=== PATIENT | female | born 1990 ===

== ENCOUNTER 2016-11-30 01:26 | Emergency (ER) | payer OTHER ==
[2016-11-30 01:45] VITALS: BMI 24.7
[2016-11-30 01:47] VITALS: RESP 16; O2SAT 100
[2016-11-30] MEDS ORDERED: levoFLOXacin 750 MG TAB PO STA (02:40)
--- NOTE | 2016-11-30 02:48 | ED PDOC ---
HPI: CCC, URI, Sore Throat Chief Complaint (Provider): Ear Pain History Per: Patient <Kristin Kinney - Last Filed: 11/30/16 03:39> <Ortiz Pabon - Last Filed: 11/30/16 04:52> Chief Complaint (Nursing): GI Problem Additional Complaint(s): 26F p/w being awakened at 2330 by severe, sharp LEFT ear pain and then NBNB vomiting x3 on the way to the hospital. Patient reports she went to see her PMD 2 days prior for sinus/URI symptoms and was prescribed a Z-pack and Loratidine. She says her symptoms haven't really improved and then this evening became worse. She denies fever, chills, SOB, chest pain/palpitations, sore throat, but she has had decreased hearing in the LEFT ear due to the inflammation and pressure. LMP: 10/31/2016 PMH: None PSH: None Allergies: NKDA Smoke: Occ Alcohol: Denies Drugs: Denies (Kristin Kinney) Supervising Attending Note - Attestation: I have personally seen and examined this patient.: Yes I have fully participated in the care of the patient.: Yes I have reviewed all pertinent clinical information, including history, physical exam and plan: Yes <Ortiz Pabon - Last Filed: 11/30/16 04:52> Past Medical History - Family History Family History: States: No Known Family Hx <MariellematyKristin - Last Filed: 11/30/16 03:39> <Ortiz Pabon - Last Filed: 11/30/16 04:52> Vital Signs: Last Vital Signs Temp 98.7 F 11/30/16 03:52 Pulse 78 11/30/16 03:52 Resp 16 11/30/16 03:52 BP 126/75 11/30/16 03:52 Pulse Ox 100 11/30/16 03:52 - Home Medications Home Medications: Ambulatory Orders Medication Instructions Recorded Levofloxacin [Levaquin] 750 mg PO DAILY #5 tablet 11/30/16 - Allergies Allergies/Adverse Reactions: Allergies Allergy/AdvReac Type Severity Reaction Status Date / Time No Known Allergies Allergy Verified 11/30/16 01:45 Review of Systems ROS Statement: Except As Marked, All Systems Reviewed And Found Negative ENT: Positive for: Ear Pain, Nose Congestion <Kristin Kinney - Last Filed: 11/30/16 03:39> Physical Exam - Reviewed Vital Signs Reviewed: Yes - Physical Exam Appears: Positive for: Non-toxic, No Acute Distress Head Exam: Positive for: ATRAUMATIC Skin: Positive for: Warm, Dry Eye Exam: Positive for: EOMI, PERRL ENT: Positive for: TM Is/Are (dull, RIGHT trace blood, no purulence noted). Negative for: Sinus Pain/Drainage, Pharyngeal Erythema, Tonsillar Exudate, Tonsillar Swelling Neck: Positive for: Normal, Supple Cardiovascular/Chest: Positive for: Regular Rate, Rhythm Respiratory: Positive for: Normal Breath Sounds. Negative for: Rales, Rhonchi, Wheezing Gastrointestinal/Abdominal: Positive for: Bowel Sounds, Soft. Negative for: Tenderness <Kristin Kinney - Last Filed: 11/30/16 03:39> - ECG O2 Sat by Pulse Oximetry: 100 <Kristin Kinney - Last Filed: 11/30/16 03:39> Medical Decision Making <Kristin Kinney - Last Filed: 11/30/16 03:39> <Ortiz Pabon - Last Filed: 11/30/16 04:52> Medical Decision MakinF failed therapy on Z-pack and appears to have AOM with likely sinus involvement. Will ensure PO tolerance and then start appropriate antibiotic coverage. - Zofran PO - Ibuprofen, PO, for pain - Levaquin 750mg, PO, x1 Re-eval 0330 Patient tolerated Zofran, Ibuprofen, Levaquin, and now feels better. (Kristin Kinney) Disposition - Patient ED Disposition Is Patient to be Admitted: No Counseled Patient/Family Regarding: Studies Performed, Diagnosis, Need For Followup, Rx Given - Disposition Disposition: Routine/Home Disposition Time: 03:35 <Kristin Kinney - Last Filed: 11/30/16 03:39> <Ortiz Pabon - Last Filed: 11/30/16 04:52> - Clinical Impression Clinical Impression: Acute otitis media - Disposition Referrals: Maxine Robles MD [Staff Provider] - Condition: GOOD Additional Instructions: Any fevers, chills after 24hrs from discharge patient needs to return. Otherwise , follow up with PMD after completion of antibiotics. Prescriptions: Levofloxacin [Levaquin] 750 mg PO DAILY #5 tablet Instructions: Otitis Media (ED) Forms: [employer] (Urdu)
[2016-11-30 03:53] VITALS: BP 126/75; PULSE 78; TEMP 98.7
== END 2016-11-30 03:53 | disposition home or self-care (01) ==
LOC: H.ER 01:26
DX: H66.92 Otitis media, unspecified, left ear (principal)

== ENCOUNTER 2017-05-01 02:26 | Observation (INO) | payer OTHER ==
[2017-05-01 02:28] VITALS: BMI 24.7
[2017-05-01] MEDS ORDERED: Iohexol 240 (50 ml) PO ONE (04:04)
[2017-05-01] MEDS ORDERED: Sodium Chloride 0.9% 1,000 ML IV STA (04:04)
[2017-05-01 04:31] LABS: BASO # 0.1 K/uL (0.0-0.2); BASO % 0.6 % (0.0-2.0); EOS # 0.1 K/uL (0.0-0.7); EOS % 0.6 % (0.0-4.0); HEMOGLOBIN 12.9 g/dL (12.0-16.0); LYMPH # 3.3 K/uL (1.0-4.3); LYMPH % 20.1 % (20.0-40.0); MEAN CELL VOLUME 91.5 fl (81.0-99.0); MEAN CORPUSCULAR HGB CONC 33.9 g/dL (33.0-37.0); MEAN PLATELET VOLUME 7.6 fl (7.2-11.7); MONO # 1.3 K/uL (0.0-0.8); MONO % 7.8 % (0.0-10.0); NEUT # 11.6 K/uL (1.8-7.0); NEUT % 70.9 % (50.0-75.0); NRBC % 0.1 % (0.0-0.0); RBC 4.14 Mil/uL (3.80-5.20); RED CELL DISTRIBUTION WIDTH 13.6 % (11.5-14.5); WHITE BLOOD COUNT 16.3 K/uL (4.8-10.8)
[2017-05-01] MEDS ORDERED: Iohexol 240 (50 ml) ONE (04:37)
[2017-05-01 04:41] LABS: ALB/GLOB RATIO 1.3 (1.0-2.1); ALBUMIN 4.6 g/dL (3.5-5.0); ALT/SGPT 29 U/L (9-52); AST/SGOT 25 U/L (14-36); BLOOD UREA NITROGEN 10 mg/dl (7-17); CALCIUM 9.3 mg/dL (8.4-10.2); GFR AFRICAN-AMERICAN > 60; GFR NON-AFRICAN AMERICAN > 60
--- NOTE | 2017-05-01 04:45 | ED PDOC ---
HPI: Abdomen Time Seen by Provider: 05/01/17 03:54 Chief Complaint (Nursing): Abdominal Pain Chief Complaint (Provider): Abdominal Pain History Per: Patient History/Exam Limitations: no limitations Onset/Duration Of Symptoms: Days (x2) Outside of [place] travel?: No Current Symptoms Are (Timing): Still Present Pain Scale Rating Of: 6 Location Of Pain/Discomfort: RLQ Associated Symptoms: Nausea, Vomiting. denies: Urinary Symptoms Additional Complaint(s): 27 year old female presents to ED with complaints of RLQ pain x2 days and has no past medical history. (+) nausea and vomiting x1 day. Notes being seen by PCP yesterday and was diagnosed with strep. States she was confused as she had never experienced throat pain. Rates RLQ pain as a 6/10 in intensity today, prompting ED visit. (-) urinary symptoms or vaginal bleeding/discharge. PCP: Dr. Robles Abnormal Vaginal Bleeding: No Past Medical History Reviewed: Historical Data, Nursing Documentation, Vital Signs Vital Signs: Last Vital Signs Temp 98.6 F 05/01/17 03:23 Pulse 81 05/01/17 03:23 Resp 17 05/01/17 03:23 BP 107/59 L 05/01/17 03:23 Pulse Ox 97 05/01/17 06:32 - Medical History PMH: No Chronic Diseases - Surgical History Surgical History: No Surg Hx - Family History Family History: States: No Known Family Hx - Living Arrangements Living Arrangements: Alone - Social History Alcohol: Social - Home Medications Home Medications: Ambulatory Orders Medication Instructions Recorded Levofloxacin [Levaquin] 750 mg PO DAILY #5 tablet 11/30/16 - Allergies Allergies/Adverse Reactions: Allergies Allergy/AdvReac Type Severity Reaction Status Date / Time No Known Allergies Allergy Verified 11/30/16 01:45 Review of Systems ROS Statement: Except As Marked, All Systems Reviewed And Found Negative ENT: Negative for: Throat Pain Gastrointestinal: Positive for: Nausea, Abdominal Pain (RLQ pain) Genitourinary Female: Negative for: Dysuria, Frequency, Incontinence, Hematuria , Vaginal Discharge, Vaginal Bleeding Physical Exam - Reviewed Nursing Documentation Reviewed: Yes Vital Signs Reviewed: Yes - Physical Exam Appears: Positive for: Non-toxic, No Acute Distress Skin: Positive for: Normal Color, Warm, Dry Eye Exam: Positive for: Normal appearance, EOMI, PERRL ENT: Positive for: Normal ENT Inspection Neck: Positive for: Normal Cardiovascular/Chest: Positive for: Regular Rate, Rhythm. Negative for: Bradycardia Respiratory: Positive for: Normal Breath Sounds. Negative for: Respiratory Distress Gastrointestinal/Abdominal: Positive for: Soft. Negative for: Normal Exam, Tenderness (RLQ tenderness) Back: Positive for: Normal Inspection Extremity: Positive for: Normal ROM. Negative for: Deformity Neurologic/Psych: Positive for: Alert, Oriented. Negative for: Motor/Sensory Deficits - Laboratory Results Result Diagrams: 05/01/17 04:28 05/01/17 04:28 - ECG O2 Sat by Pulse Oximetry: 97 (RA) Pulse Ox Interpretation: Normal Medical Decision Making Medical Decision Makin Initial impression: appendicitis v mesenteric adenitis v ovarian cyst. Initial plan: * T&S * CTA A/P * Labs * UPreg * NS IV * Iohexol 50mL PO * Toradol 15mg IVP * BCx * Re-eval 0700 Patient will be signed out to Dr. Helms pending CT and re-eval. Scribe Attestation: Documented by Shana Glasgow acting as a scribe for Ortiz Pabon MD. Scribe Attestation: All medical record entries made by the Scribe were at my direction and personally dictated by me. I have reviewed the chart and agree that the record accurately reflects my personal performance of the history, physical exam, medical decision making, and the department course for this patient. I have also personally directed, reviewed, and agree with the discharge instructions and disposition. Disposition - Clinical Impression Clinical Impression: Abdominal pain - Disposition Referrals: Maxine Robles MD [Primary Care Provider] - Disposition: Transfer of Care Disposition Time: 07:00 Condition: STABLE Forms: [employer] (Belarusian) Patient Signed Over To: Zari Helms Handoff Comments: pending CT and re-evaluation
[2017-05-01] MEDS ORDERED: Sodium Chloride 0.9% 50 ML IV ONE (07:39)
[2017-05-01] MEDS ORDERED: Iohexol 300 100 ML IJ ONE (07:39)
[2017-05-01] MEDS ORDERED: Piperacillin/Tazobact 3.375 GM in Sodium Chloride 0.9% 100 ML IVPB STA (08:08)
[2017-05-01] MEDS ORDERED: Potassium Chl 40 mEq in D5-1/2 1,000 ML IV SCH (08:15)
--- NOTE | 2017-05-01 08:20 | ED PDOC ---
- Laboratory Results Result Diagrams: 05/01/17 04:28 05/01/17 04:28 - ECG O2 Sat by Pulse Oximetry: 97 (RA) Medical Decision Making Medical Decision Making: CT abd pelvis reported by [facility] radiologist - appendicitis, acute case d/w Darryl Merino Consulted with Yossi Henry Admit to [place], [id number], Reji rodríguez. likely OR this afternoon. NPO Disposition Doctor Will See Patient In The: Hospital - Clinical Impression Clinical Impression: Abdominal pain, Acute appendicitis - POA Present On Arrival: None - Disposition Referrals: Maxine Robles MD [Primary Care Provider] - Disposition: Admitted as In-Patient Disposition Time: 08:20 Condition: STABLE Forms: [employer] (Georgian)
--- NOTE | 2017-05-01 09:54 | CT ---
PROCEDURE: CT Abdomen and Pelvis with contrast HISTORY: RLQ pain, r/o appendicitis COMPARISON: None. TECHNIQUE: Contrast dose: 95 mL Omnipaque 300 Radiation dose: Total exam DLP = 526.6 mGy-cm. This CT exam was performed using one or more of the following dose reduction techniques: Automated exposure control, adjustment of the mA and/or kV according to patient size, and/or use of iterative reconstruction technique. FINDINGS: LOWER THORAX: Unremarkable. LIVER: Mild hepatic steatosis. No gross lesion or ductal dilatation. GALLBLADDER AND BILE DUCTS: Unremarkable. PANCREAS: Unremarkable. No gross lesion or ductal dilatation. SPLEEN: Unremarkable. ADRENALS: Unremarkable. No mass. KIDNEYS AND URETERS: Unremarkable. No hydronephrosis. No solid mass. VASCULATURE: Unremarkable. No aortic aneurysm. BOWEL: Unremarkable. No obstruction. No gross mural thickening. APPENDIX: Dilated, enhancing, thick walled appendix measuring up to 1.3 cm with periappendiceal stranding. PERITONEUM: Unremarkable. No free fluid. No free air. LYMPH NODES: Unremarkable. No enlarged lymph nodes. BLADDER: Unremarkable. REPRODUCTIVE: Unremarkable. BONES: No acute fracture. OTHER FINDINGS: None. IMPRESSION: Acute appendicitis. No evidence of perforation or abscess.
[2017-05-01] MEDS ORDERED: Bupivacaine 0.5% Inj(30mL) ONE ×2 (10:13→15:13)
[2017-05-01] MEDS ORDERED: Sodium Chloride 0.9% 1,000 ML IV SCH (10:15)
--- NOTE | 2017-05-01 10:24 | CP.PCM.CON ---
History of Present Illness - History of Present Illness History of Present Illness: General Surgery: Dr Henry Pt is a 27F with no PMH who presents with ~48 hours of abdominal pain. Pt states pain started in the periumbilical region and slowly migrated to the RLQ. She has had associated nausea and vomiting. Pt visited clinic yesterday where she was given zofran for emesis and sent home. Pt states vomiting subsided but pain remains. Denies fevers or chills. Pain does not radiated anywhere. Currently 8/10 relieved by medication. PMH: none PSH: none Review of Systems - Review of Systems All systems: reviewed and no additional remarkable complaints except (as per hpi ) Past Patient History - Past Medical History & Family History Past Medical History?: No - Past Social History Smoking Status: Never Smoked - PSYCHIATRIC Hx Substance Use: No - SURGICAL HISTORY Hx Surgeries: No - ANESTHESIA Hx Anesthesia: No Meds Home Medications: Home Medication List Medication Instructions Recorded Confirmed Type Amoxicillin/Clavulanate [Augmentin 1 tab PO BID #14 tab 05/01/17 Rx 875 MG-125 MG] oxyCODONE/Acetaminophen [Percocet 1 tab PO Q4 PRN #10 tab 05/01/17 Rx 5/325 mg Tab] oxyCODONE/Acetaminophen [Percocet 1 tab PO Q4H PRN #10 tab 05/01/17 Rx 5/325 mg Tab] Allergies/Adverse Reactions: Allergies Allergy/AdvReac Type Severity Reaction Status Date / Time No Known Allergies Allergy Verified 11/30/16 01:45 - Medications Medications: Current Medications Potassium Chloride/Dextrose/Sod Cl (Potassium Chl 40 Meq In D5-1/2ns) 1,000 mls @ 125 mls/hr IV .Q8H [facility] Last Admin: 05/01/17 08:39 Dose: 125 mls/hr Sodium Chloride (Sodium Chloride 0.9%) 1,000 mls @ 125 mls/hr IV .Q8H [facility] Stop: 05/02/17 10:09 Piperacillin Sod/Tazobactam (Sod 3.375 gm/ Sodium Chloride) 100 mls @ 100 mls/ hr IVPB Q6 [facility] PRN Reason: Protocol Morphine Sulfate (Morphine) 2 mg IVP Q4 PRN PRN Reason: Pain, severe (8-10) Ondansetron HCl (Zofran Inj) 4 mg IVP Q6 PRN PRN Reason: Nausea/Vomiting Physical Exam - Constitutional Appears: Non-toxic, No Acute Distress - Head Exam Head Exam: NORMAL INSPECTION - Eye Exam Eye Exam: Normal appearance - ENT Exam ENT Exam: Mucous Membranes Dry - Respiratory Exam Respiratory Exam: absent: Accessory Muscle Use, Respiratory Distress - Cardiovascular Exam Cardiovascular Exam: REGULAR RHYTHM. absent: Tachycardia - GI/Abdominal Exam GI & Abdominal Exam: Guarding (voluntary), Soft, Tenderness (RLQ). absent: Distended, Firm, Hernia, Rebound, Rigid - Extremities Exam Extremities exam: Negative for: pedal edema - Neurological Exam Neurological exam: Alert, Oriented x3 - Psychiatric Exam Psychiatric exam: Normal Affect, Normal Mood Results - Vital Signs Recent Vital Signs: Last Vital Signs Temp 98 F 05/01/17 08:23 Pulse 71 05/01/17 08:23 Resp 18 05/01/17 08:23 BP 100/75 05/01/17 08:23 Pulse Ox 100 05/01/17 08:23 - Labs Result Diagrams: 05/01/17 04:28 05/01/17 04:28 Labs: Laboratory Results - last 24 hr 05/01/17 05/01/17 05/01/17 04:25 04:28 04:28 WBC 16.3 H RBC 4.14 Hgb 12.9 Hct 37.9 MCV 91.5 MCH 31.0 MCHC 33.9 RDW 13.6 Plt Count 484 H MPV 7.6 Neut % (Auto) 70.9 Lymph % (Auto) 20.1 [place] % (Auto) 7.8 Eos % (Auto) 0.6 Baso % (Auto) 0.6 Neut # (Auto) 11.6 H Lymph # (Auto) 3.3 [place] # (Auto) 1.3 H Eos # (Auto) 0.1 Baso # (Auto) 0.1 Sodium 143 Potassium 3.5 L Chloride 102 Carbon Dioxide 28 Anion Gap 17 BUN 10 Creatinine 0.8 Est GFR ( Amer) > 60 Est GFR (Non-Af Amer) > 60 Random Glucose 91 Calcium 9.3 Total Bilirubin 0.6 AST 25 ALT 29 Alkaline Phosphatase 71 Total Protein 8.0 Albumin 4.6 Globulin 3.4 Albumin/Globulin Ratio 1.3 Blood Type O POSITIVE Antibody Screen Negative BBK History Checked No verified bt Assessment & Plan - Assessment and Plan (Free Text) Assessment: 27F with appendicitis Plan: NPO IVF Abx Preg test negative consent in chart pt for OR this afternoon d/w Dr Carl Fontenot, PGY3
--- NOTE | 2017-05-01 11:23 | CP.PCM.HP ---
History of Present Illness - History of Present Illness History of Present Illness: pt for acute ap. started w/ rlq pain x 3 dyas. no f/c, n/v/d. bw noted. wbc 16 Present on Admission - Present on Admission Any Indicators Present on Admission: No Review of Systems - Gastrointestinal Gastrointestinal: As Per HPI, Abdominal Pain Past Patient History - Past Medical History & Family History Past Medical History?: No - Past Social History Smoking Status: Never Smoked - PSYCHIATRIC Hx Substance Use: No - SURGICAL HISTORY Hx Surgeries: No - ANESTHESIA Hx Anesthesia: No Meds Home Medications: Home Medication List Medication Instructions Recorded Confirmed Type Amoxicillin/Clavulanate [Augmentin 1 tab PO BID #14 tab 05/01/17 Rx 875 MG-125 MG] oxyCODONE/Acetaminophen [Percocet 1 tab PO Q4 PRN #10 tab 05/01/17 Rx 5/325 mg Tab] oxyCODONE/Acetaminophen [Percocet 1 tab PO Q4H PRN #10 tab 05/01/17 Rx 5/325 mg Tab] Allergies/Adverse Reactions: Allergies Allergy/AdvReac Type Severity Reaction Status Date / Time No Known Allergies Allergy Verified 11/30/16 01:45 Physical Exam - Constitutional Appears: Well, Non-toxic, No Acute Distress - Head Exam Head Exam: ATRAUMATIC, NORMAL INSPECTION, NORMOCEPHALIC - Eye Exam Eye Exam: EOMI, Normal appearance, PERRL Pupil Exam: NORMAL ACCOMODATION, PERRL - ENT Exam ENT Exam: Mucous Membranes Moist, Normal Exam - Neck Exam Neck exam: Positive for: Normal Inspection - Respiratory Exam Respiratory Exam: Clear to Auscultation Bilateral, NORMAL BREATHING PATTERN - Cardiovascular Exam Cardiovascular Exam: REGULAR RHYTHM, RRR, +S1, +S2 - GI/Abdominal Exam GI & Abdominal Exam: Normal Bowel Sounds, Soft. absent: Tenderness - Extremities Exam Extremities exam: Positive for: full ROM, normal capillary refill, normal inspection, pedal pulses present - Back Exam Back exam: NORMAL INSPECTION - Neurological Exam Neurological exam: Alert, CN II-XII Intact, Normal Gait, Oriented x3, Reflexes Normal - Psychiatric Exam Psychiatric exam: Normal Affect, Normal Mood - Skin Skin Exam: Dry, Intact, Normal Color, Warm Results - Vital Signs Recent Vital Signs: Last Vital Signs Temp 98 F 05/01/17 11:01 Pulse 78 05/01/17 11:01 Resp 18 05/01/17 11:00 BP 120/78 05/01/17 11:01 Pulse Ox 100 05/01/17 08:23 - Labs Result Diagrams: 05/01/17 04:28 05/01/17 04:28 Labs: Laboratory Results - last 24 hr 05/01/17 05/01/17 05/01/17 04:25 04:28 04:28 WBC 16.3 H RBC 4.14 Hgb 12.9 Hct 37.9 MCV 91.5 MCH 31.0 MCHC 33.9 RDW 13.6 Plt Count 484 H MPV 7.6 Neut % (Auto) 70.9 Lymph % (Auto) 20.1 [place] % (Auto) 7.8 Eos % (Auto) 0.6 Baso % (Auto) 0.6 Neut # (Auto) 11.6 H Lymph # (Auto) 3.3 [place] # (Auto) 1.3 H Eos # (Auto) 0.1 Baso # (Auto) 0.1 Sodium 143 Potassium 3.5 L Chloride 102 Carbon Dioxide 28 Anion Gap 17 BUN 10 Creatinine 0.8 Est GFR ( Amer) > 60 Est GFR (Non-Af Amer) > 60 Random Glucose 91 Calcium 9.3 Total Bilirubin 0.6 AST 25 ALT 29 Alkaline Phosphatase 71 Total Protein 8.0 Albumin 4.6 Globulin 3.4 Albumin/Globulin Ratio 1.3 Blood Type O POSITIVE Antibody Screen Negative BBK History Checked No verified bt Assessment & Plan (1) Acute appendicitis Assessment and Plan: zosyn pain control, surgery cleared for surgery Status: Acute Decision To Admit - Pt Status Changed To: Hospital Disposition Of: Inpatient - Admit Certification Admit to Inpatient:: After my assessment, the patient will require hospitalization for at least two midnights. This is because of the severity of symptoms shown, intensity of services needed, and/or the medical risk in this patient being treated as an outpatient. - . Bed Request Type: Med/Surg Admitting Physician: Maxine Robles
[2017-05-01] MEDS ORDERED: Lidocaine 1% Inj (20ml) ONE (15:13)
[2017-05-01] MEDS ORDERED: Midazolam 2 MG/2 ML VIAL ONE (15:22)
[2017-05-01] MEDS ORDERED: Propofol 10 mg/ml Inj (20 ML) ONE (15:22)
[2017-05-01] MEDS ORDERED: Lidocaine 1% 5ml Abboject IV ONE (15:23)
[2017-05-01] MEDS ORDERED: Succinylcholine 200 mg/10 ml Inj IV ONE (15:23)
[2017-05-01] MEDS ORDERED: Rocuronium 10 mg/ml (5 ml) ONE (15:23)
[2017-05-01] MEDS ORDERED: Dexamethasone 4 mg/1 ml ONE (15:23)
[2017-05-01] MEDS ORDERED: Neostigmine Methylsulfate 2 MG/2 ML ML IV ONE (15:32)
[2017-05-01] MEDS ORDERED: Piperacillin/Tazobact 3.375 GM in Sodium Chloride 0.9% 100 ML IVPB SCH (16:00)
[2017-05-01] MEDS ORDERED: Sevoflurane - Inhalation Anesthetic Liq (250 ml) ONE (16:01)
[2017-05-01] MEDS ORDERED: Lactated Ringer's 1,000 ML IV ONE (16:08)
[2017-05-01] MEDS ORDERED: Piperacillin/Tazobact 3.375 gm Inj IVPB ONE (16:20)
[2017-05-01] MEDS ORDERED: Bupivacaine 0.5% 50 ML IJ ONE (16:48)
[2017-05-01] MEDS ORDERED: HYDROmorphone 0.5 mg/0.5 ml ISec IVP PRN (16:59)
[2017-05-01] MEDS ORDERED: Oxycodone/Acetaminophen 5/325 mg Tab PO PRN (17:43)
[2017-05-02] MEDS: Piperacillin/Tazobact 3.375 GM in Sodium Chloride 0.9% 100 ML IVPB SCH ×2 (00:41→09:16)
[2017-05-02 05:18] VITALS: O2SAT 98
[2017-05-02 06:41] LABS: BASO % 0.2 % (0.0-2.0); EOS % 0.1 % (0.0-4.0); HEMOGLOBIN 10.2 g/dL (12.0-16.0); LYMPH # 0.9 K/uL (1.0-4.3); LYMPH % 7.6 % (20.0-40.0); MEAN CORPUSCULAR HGB CONC 32.2 g/dL (33.0-37.0); MEAN PLATELET VOLUME 7.9 fl (7.2-11.7); MONO # 0.8 K/uL (0.0-0.8); MONO % 6.6 % (0.0-10.0); NEUT # 10.4 K/uL (1.8-7.0); NEUT % 85.5 % (50.0-75.0); PLATELET COUNT 396 K/uL (130-400); RBC 3.38 Mil/uL (3.80-5.20); RED CELL DISTRIBUTION WIDTH 13.7 % (11.5-14.5); WHITE BLOOD COUNT 12.1 K/uL (4.8-10.8)
[2017-05-02 06:59] LABS: ALB/GLOB RATIO 1.1 (1.0-2.1); ALBUMIN 3.2 g/dL (3.5-5.0); ALT/SGPT 26 U/L (9-52); AST/SGOT 27 U/L (14-36); BLOOD UREA NITROGEN 4 mg/dl (7-17); CALCIUM 8.4 mg/dL (8.4-10.2); GFR AFRICAN-AMERICAN > 60; GFR NON-AFRICAN AMERICAN > 60
--- NOTE | 2017-05-02 09:27 | CP.PCM.PN ---
Subjective - Date & Time of Evaluation Date of Evaluation: 05/02/17 Time of Evaluation: 09:27 Objective - Vital Signs/Intake and Output Vital Signs (last 24 hours): Temp Pulse Resp BP Pulse Ox 97.2 F L 60 18 99/55 L 98 05/02/17 05:00 05/02/17 05:00 05/02/17 05:00 05/02/17 05:00 05/02/17 05:00 Intake and Output: 05/02/17 05/02/17 06:59 18:59 Intake Total 1400 Balance 1400 - Medications Medications: Current Medications Potassium Chloride/Dextrose/Sod Cl (Potassium Chl 40 Meq In D5-1/2ns) 1,000 mls @ 125 mls/hr IV .Q8H [facility] Last Admin: 05/01/17 08:39 Dose: 125 mls/hr Sodium Chloride (Sodium Chloride 0.9%) 1,000 mls @ 125 mls/hr IV .Q8H [facility] Stop: 05/02/17 10:09 Piperacillin Sod/Tazobactam (Sod 3.375 gm/ Sodium Chloride) 100 mls @ 100 mls/ hr IVPB Q8 [facility] PRN Reason: Protocol Last Admin: 05/02/17 09:16 Dose: 100 mls/hr Dextrose/Sodium Chloride (Dextrose 5%-0.9% Ns 500 Ml) 500 mls @ 100 mls/hr IV .Q5H [facility] Stop: 05/02/17 18:06 Last Admin: 05/02/17 03:09 Dose: 100 mls/hr Morphine Sulfate (Morphine) 2 mg IVP Q4 PRN PRN Reason: Pain, severe (8-10) Ondansetron HCl (Zofran Inj) 4 mg IVP Q6 PRN PRN Reason: Nausea/Vomiting Last Admin: 05/01/17 23:18 Dose: 4 mg Oxycodone/Acetaminophen (Percocet 5/325 Mg Tab) 1 tab PO Q4 PRN PRN Reason: Pain, moderate (4-7) Stop: 05/04/17 17:44 Last Admin: 05/01/17 23:11 Dose: 1 tab - Labs Labs: 05/02/17 04:50 05/02/17 04:50 Assessment and Plan (1) Acute appendicitis Status: Acute
--- NOTE | 2017-05-02 10:10 | CP.PCM.DIS ---
Provider - Provider Date of Admission: 05/01/17 08:20 Attending physician: Maxine Robles MD Primary care physician: Maxine Robles MD Time Spent in preparation of Discharge (in minutes): 15 Diagnosis - Discharge Diagnosis (1) Acute appendicitis Status: Acute Hospital Course - Lab Results Lab Results: Most Recent Lab Values WBC 12.1 K/uL (4.8-10.8) H 05/02/17 04:50 RBC 3.38 Mil/uL (3.80-5.20) L 05/02/17 04:50 Hgb 10.2 g/dL (12.0-16.0) L D 05/02/17 04:50 Hct 31.5 % (34.0-47.0) L 05/02/17 04:50 MCV 93.0 fl (81.0-99.0) 05/02/17 04:50 MCH 30.0 pg (27.0-31.0) 05/02/17 04:50 MCHC 32.2 g/dL (33.0-37.0) L 05/02/17 04:50 RDW 13.7 % (11.5-14.5) 05/02/17 04:50 Plt Count 396 K/uL (130-400) 05/02/17 04:50 MPV 7.9 fl (7.2-11.7) 05/02/17 04:50 Neut % (Auto) 85.5 % (50.0-75.0) H 05/02/17 04:50 Lymph % (Auto) 7.6 % (20.0-40.0) L 05/02/17 04:50 [place] % (Auto) 6.6 % (0.0-10.0) 05/02/17 04:50 Eos % (Auto) 0.1 % (0.0-4.0) 05/02/17 04:50 Baso % (Auto) 0.2 % (0.0-2.0) 05/02/17 04:50 Neut # (Auto) 10.4 K/uL (1.8-7.0) H 05/02/17 04:50 Lymph # (Auto) 0.9 K/uL (1.0-4.3) L 05/02/17 04:50 [place] # (Auto) 0.8 K/uL (0.0-0.8) 05/02/17 04:50 Eos # (Auto) 0.0 K/uL (0.0-0.7) 05/02/17 04:50 Baso # (Auto) 0.0 K/uL (0.0-0.2) 05/02/17 04:50 Sodium 137 mmol/l (132-148) 05/02/17 04:50 Potassium 4.3 MMOL/L (3.6-5.0) 05/02/17 04:50 Chloride 103 mmol/L (98-107) 05/02/17 04:50 Carbon Dioxide 26 mmol/L (22-30) 05/02/17 04:50 Anion Gap 12 (10-20) 05/02/17 04:50 BUN 4 mg/dl (7-17) L 05/02/17 04:50 Creatinine 0.7 mg/dl (0.7-1.2) 05/02/17 04:50 Est GFR ( Amer) > 60 05/02/17 04:50 Est GFR (Non-Af Amer) > 60 05/02/17 04:50 Random Glucose 151 mg/dL (65-105) H 05/02/17 04:50 Calcium 8.4 mg/dL (8.4-10.2) 05/02/17 04:50 Total Bilirubin 0.5 mg/dl (0.2-1.3) 05/02/17 04:50 AST 27 U/L (14-36) 05/02/17 04:50 ALT 26 U/L (9-52) 05/02/17 04:50 Alkaline Phosphatase 46 U/L (38-126) 05/02/17 04:50 Total Protein 6.1 G/DL (6.3-8.2) L 05/02/17 04:50 Albumin 3.2 g/dL (3.5-5.0) L D 05/02/17 04:50 Globulin 2.9 gm/dL (2.2-3.9) 05/02/17 04:50 Albumin/Globulin Ratio 1.1 (1.0-2.1) 05/02/17 04:50 Blood Type O POSITIVE 05/01/17 04:25 Blood Type Confirm O POSITIVE 02/09/18 06:05 Antibody Screen Negative 05/01/17 04:25 BBK History Checked No verified bt 05/01/17 04:25 - Hospital Course Hospital Course: lap appy, pain meds, anbx surgery ivf Discharge Exam - Head Exam Head Exam: ATRAUMATIC, NORMAL INSPECTION, NORMOCEPHALIC - Eye Exam Eye Exam: EOMI, Normal appearance, PERRL Pupil Exam: NORMAL ACCOMODATION, PERRL - Respiratory Exam Respiratory Exam: Clear to PA & Lateral, NORMAL BREATHING PATTERN, UNREMARKABLE - Cardiovascular Exam Cardiovascular Exam: REGULAR RHYTHM, RRR, +S1, +S2 - GI/Abdominal Exam GI & Abdominal Exam: Normal Bowel Sounds, Soft, Unremarkable Additional comments: surgical sites as nioted - Extremities Exam Extremities exam: full ROM, normal capillary refill, normal inspection, pedal pulses present - Neurological Exam Neurological exam: Alert, CN II-XII Intact, Normal Gait, Oriented x3, Reflexes Normal - Psychiatric Exam Psychiatric exam: Normal Affect, Normal Mood - Skin Skin Exam: Dry, Intact, Normal Color, Warm Discharge Plan - Follow Up Plan Condition: STABLE Disposition: HOME/ ROUTINE Instructions: Tramadol (By mouth), Laparoscopic Appendectomy (DC), Surgical Site Infections (DC), How To Wash Your Hands (DC) Additional Instructions: final dx-acute AP doing well. lizzy po. no f/c, n/v/d surgical sites w/ brittany rn at bedside c/d/i. scant blood noted to most superior dsg. for dc today, cleared by surgery, rted prn, med sper med rec, f/u surgery/rmg as directed. Referrals: Maxine Robles MD [Primary Care Provider] - Mendel Martinez MD [Staff Provider] -
[2017-05-02 10:28] VITALS: BP 98/59; PULSE 58; RESP 16; TEMP 97.8
--- NOTE | 2017-05-02 10:36 | CP.PCM.PN ---
Subjective - Date & Time of Evaluation Date of Evaluation: 05/02/17 Time of Evaluation: 10:34 - Subjective Subjective: feels better, tolerating PO, AF/vss Objective - Vital Signs/Intake and Output Vital Signs (last 24 hours): Temp Pulse Resp BP Pulse Ox 97.8 F 58 L 16 98/59 L 98 05/02/17 09:00 05/02/17 09:00 05/02/17 09:00 05/02/17 09:00 05/02/17 09:00 Intake and Output: 05/02/17 05/02/17 06:59 18:59 Intake Total 1400 Balance 1400 - Medications Medications: Current Medications Potassium Chloride/Dextrose/Sod Cl (Potassium Chl 40 Meq In D5-1/2ns) 1,000 mls @ 125 mls/hr IV .Q8H [facility] Last Admin: 05/01/17 08:39 Dose: 125 mls/hr Piperacillin Sod/Tazobactam (Sod 3.375 gm/ Sodium Chloride) 100 mls @ 100 mls/ hr IVPB Q8 BAS[facility] PRN Reason: Protocol Last Admin: 05/02/17 09:16 Dose: 100 mls/hr Dextrose/Sodium Chloride (Dextrose 5%-0.9% Ns 500 Ml) 500 mls @ 100 mls/hr IV .Q5H [facility] Stop: 05/02/17 18:06 Last Admin: 05/02/17 03:09 Dose: 100 mls/hr Morphine Sulfate (Morphine) 2 mg IVP Q4 PRN PRN Reason: Pain, severe (8-10) Ondansetron HCl (Zofran Inj) 4 mg IVP Q6 PRN PRN Reason: Nausea/Vomiting Last Admin: 05/01/17 23:18 Dose: 4 mg Oxycodone/Acetaminophen (Percocet 5/325 Mg Tab) 1 tab PO Q4 PRN PRN Reason: Pain, moderate (4-7) Stop: 05/04/17 17:44 Last Admin: 05/01/17 23:11 Dose: 1 tab - Labs Labs: 05/02/17 04:50 05/02/17 04:50 - Constitutional Appears: Non-toxic - Eye Exam Eye Exam: EOMI - ENT Exam ENT Exam: Mucous Membranes Moist - Neck Exam Neck Exam: Normal Inspection - Respiratory Exam Respiratory Exam: Clear to Ausculation Bilateral - Cardiovascular Exam Cardiovascular Exam: REGULAR RHYTHM - GI/Abdominal Exam GI & Abdominal Exam: Soft, Normal Bowel Sounds Assessment and Plan - Assessment and Plan (Free Text) Assessment: post appendectomy, stable for d/c home Plan: as above
[2017-05-02 11:31] LABS: BANDS 1 % (0-2); LYMPHOCYTE 8 % (20-50); MONOCYTE 1 % (0-10); NEUTROPHIL 90 % (42-75); PLATELET ESTIMATE NORMAL (NORMAL); TOTAL CELLS COUNTED 100
[2017-05-02 11:32] LABS: ANISOCYTOSIS SLIGHT; LARGE PLATELETS PRESENT
--- NOTE | 2017-05-04 09:19 | OP ---
PROCEDURE DATE: 05/01/2017 PREOPERATIVE DIAGNOSIS: Acute appendicitis. POSTOPERATIVE DIAGNOSIS: Acute appendicitis. PROCEDURE: Laparoscopy and laparoscopic appendectomy. SURGEON: Mendel Martinez MD TYPE OF ANESTHESIA: General. ANESTHESIA ADMINISTERED BY: Dr. Cruz. OPERATIVE FINDINGS: Acute appendicitis. PREPARATION AND PROCEDURE: The patient was brought to the Operating Room and after successful induction of general endotracheal anesthesia was obtained and a Guzman catheter inserted, the abdomen was prepped and draped in the usual manner. A periumbilical Veress needle was inserted and making sure that it was in the intra-abdominal cavity, adequate pneumoperitoneum was obtained. The needle was removed. A periumbilical incision was made inserting a 10 mm trocar and doing a full laparoscopy. Under direct visualization, a 5 mm trocar was inserted in the suprapubic region. Dissection was carried out in the right lower quadrant. There was obvious acute appendicitis. A 12 mm trocar was inserted in the left lower quadrant after making an incision under direct visualization. At this point, grasping the tip of the appendix, dissection was carried out at the base. An Endo-DAVID was used for the base of the appendix. This was a blue cartridge, a GI cartridge, and the base of the appendix was divided. At this point, the mesoappendix was visualized. This was then stapled using a vascular Endo-DAVID. At this point, the appendix with the mesoappendix were placed in an Endo-bag. The area was copiously irrigated and suctioned. The Endo-bag was brought out with the appendix through the left lower quadrant incision. At this point, making sure that hemostasis was excellent, all trocars were removed under direct visualization. The left lower quadrant incision and the incision in the umbilicus were closed with #0 Vicryl and the all the skin incisions were closed with nylon. Marcaine was used for infiltration. POSTOPERATIVE CONDITION: The patient tolerated the procedure well and was transferred to Recovery Room in good general status. Mendel Martinez MD
== END 2017-05-02 11:35 | disposition home or self-care (01) ==
LOC: H.ER 02:26 → H.ERHOLD 08:20 → INTOOBSV 08:20 → H.PEDS 18:53
PROVIDERS: ADMIT Family Medicine; ATTEND Family Medicine
DX: K35.80 Unspecified acute appendicitis (principal)
CPT/HCPCS: 36415; 44970; 74177; 80053; 81025; 85025; 86850; 86900; 96361; 96365; 96366; 96375; 99285; G0378; J1100; J1170; J1885; J2250; J2405; J2543; J2704; J2710; J3010; J7040; J7042; J7120; Q9966; Q9967